=== PATIENT | male | born 1945 | race Hispanic/Latino ===

== ENCOUNTER 2023-02-23 14:57 | Observation (INO) | payer MEDICARE, SELFPAY ==
[2023-02-23] VITALS (19 sets, daily range): BP systolic 121–149; BP diastolic 68–98; PULSE 68–78; RESP 15–22; TEMP 36.2–36.6; O2SAT 93–97; BMI 62.3
--- NOTE | 2023-02-23 14:57 | DI.RAD.S_ITS ---
PROCEDURE: XR CHEST 1V INDICATIONS: Possible stroke TECHNIQUE: One view of the chest was acquired. COMPARISON: None. FINDINGS: Surgical changes and devices: None. Lungs and pleura: Lungs are clear. No pleural effusions or pneumothorax. Mediastinum: Mediastinal contours appear normal. Heart size is normal. Bones and chest wall: No suspicious bony lesions. Overlying soft tissues appear unremarkable. IMPRESSION: No acute cardiopulmonary abnormality. Dictated by: Michael Cortez M.D. on 02/23/2023 at 14:39 Approved by: Michael Cortez M.D. on 02/23/2023 at 14:39
--- NOTE | 2023-02-23 14:58 | DI.CT.S_ITS ---
PROCEDURE: CT HEAD/BRAIN WO CON INDICATIONS: confusion TECHNIQUE: Noncontrast 4.5 mm thick angled axial sections acquired from the foramen magnum to the vertex, with coronal and sagittal reformats. For radiation dose reduction, the following was used: automated exposure control, adjustment of mA and/or kV according to patient size. COMPARISON: None. FINDINGS: Image quality: Excellent. CSF spaces: Basal cisterns are patent. No extra-axial fluid collections. The ventricles are symmetric in size and shape. Brain: No intracranial bleeds or masses. There is cerebral volume loss for age, with resultant ventricular and sulcal prominence. There are periventricular and deep white matter chronic small vessel ischemic changes. There is intracranial internal carotid artery atherosclerosis. Skull and face: Calvarium and visualized facial bones appear intact, without suspicious lesions. Sinuses: Visualized sinuses and mastoids are clear. IMPRESSION: 1. No acute intracranial abnormality. 2. Cerebral volume loss and small vessel ischemic changes. Dictated by: Michael Cortez M.D. on 02/23/2023 at 14:41 Approved by: Michael Cortez M.D. on 02/23/2023 at 14:42
--- NOTE | 2023-02-23 15:17 | ED.AMS ---
HPI - Altered Mental Status General Chief Complaint: Altered Mental Status Stated Complaint: Altered mental status Time Seen by Provider: 02/23/23 15:00 Source: patient, family (coni), EMS, RN notes reviewed, old records reviewed and performance test consultant Mode of arrival: EMS Limitations: language barrier History of Present Illness HPI narrative: This is a 77-year-old primarily Amharic-speaking male with history of coronary artery disease with 2 cardiac stents in his RCA, on aspirin, atorvastatin, Coreg and lisinopril daily. Patient presents today with complaint of confusion, patient states feels improved at this time. According to him and his niece who was present with him today patient woke up like he normally does was acting himself had breakfast went to take a shower around noon and he states that when he came back out of the shower about 20 minutes later seemed confused asking same questions did not recognize where he was, she states he is usually quite modest and he still had a towel around him but was not being very modest. She states that he was sort of repetitive asking the same questions over and over while being transported here from [facility]. Patient denies any headache, he denies any acute vision changes other than did have some double vision in the last few days particularly with the right eye. Denies any chest pain or shortness of breath, no nausea or vomiting, no diarrhea constipation, no dysuria urgency frequency or incontinence. Denies any numbness or tingling in his extremities except for some mild tingling in both feet this morning. Denies any weakness. No vertigo or lightheadedness. No passing out. Family member states patient did not have any facial droop, she did not appreciate any aphasia or dysarthria more confusion. Patient was walking normally and had normal movement she did not appreciate any one-sided weakness patient passed his FAST exam in the field with EMS. Reported to have glucose 120s in the field. Patient states he is had prior hernia repair and had cardiac stents placed, he does have a card with him appears they were placed at [facility] in [place], [place] 06/24/12 Xience V [id number] and [id number] stent in proximal RCA. Patient denies any allergies to medications. No tobacco, occasional social alcohol, no illicit. He splits his time between living in [place] in [place] and with family in the [place]. Related Data Home Medications Medication Instructions Recorded Confirmed aspirin 81 mg capsule 81 mg PO DAILY 02/23/23 02/23/23 carvedilol 3.125 mg tablet 3.125 mg PO BID 02/23/23 02/23/23 lisinopril 5 mg 1XD 02/23/23 02/23/23 simvastatin 40 mg tablet mg 02/23/23 Allergies Allergy/AdvReac Type Severity Reaction Status Date / Time No Known Drug Allergies Allergy Verified 02/23/23 15:00 Review of Systems Review of Systems ROS Unobtainable: All systems reviewed & are unremarkable except as noted in HPI and below Patient History Medical History (Updated 02/23/23 @ 18:26 by Venkatesh Yoon MD) CAD (coronary artery disease) HLD (hyperlipidemia) HTN (hypertension) Surgical History (Updated 02/23/23 @ 18:35 by Venkatesh Yoon MD) H/O inguinal hernia repair History of coronary artery stent placement Family History (Updated 02/23/23 @ 18:27 by Venkatesh Yoon MD) Father COPD (chronic obstructive pulmonary disease) Social History Smoking Status: Never smoker Exam Narrative Exam Narrative: GEN: well nourished, well appearing male, alert and oriented x 3, patient appears to be in mild distress. HEENT: Atraumatic, pupils are equal round reactive to light, extraocular movements are intact, nares are clear. Throat is clear without any exudates, erythema, tonsillar enlargement or uvular deviation, no facial droop. HEART: Regular rate and rhythm without murmur, clicks, rubs. Pulses are equal in upper and lower extremities LUNGS:Lungs clear to auscultation, no wheezes, rales, crackles, chest moves symmetrically ABD:bowel sounds normal, soft, non-tender, no guarding, rebound, rigidity, no masses noted, no hepatosplenomegaly MSCL: Non-tender, no muscle atrophy, muscles strength 5/5 upper and lower extremities, full range of motion, normal gait NEURO:CN 2-12 intact, sensation normal, finger nose finger test normal, heel casillas test normal. No expressive aphasia or dysarthria appreciated. SKIN: No rash, erythema or other skin changes Initial Vital Signs Initial Vital Signs: Vital Signs Temperature 97.9 F 07/09/23 14:55 Pulse Rate 72 02/23/23 14:55 Respiratory Rate 18 02/23/23 14:55 Blood Pressure 136/82 02/23/23 14:55 Pulse Oximetry 96 02/23/23 14:55 Oxygen Delivery Method Room Air 02/23/23 14:55 Scores NIH Stroke Scale Level of Conciousness: Alert, keenly responsive Ask month/age: Answers both questions correctly. Open/close eyes, close hand: Performs both tasks correctly Best gaze horizontal: Normal Visual romero: No visual loss Facial palsy: Normal symetrical movement Left arm drift: No drift for full 10 sec Right arm drift: No drift for full 10 sec Left leg drift: No drift for full 5 sec Right leg drift: No drift for full 5 sec Limb ataxia: Absent Sensory on face/arms/legs: Normal, no sensory loss Best language: No aphasia, normal Dysarthria: Normal Extinction or inattention: No abnormality Total NIH Stroke scale score: 0 Course Orders Ordered: ED Orders 02/23/23 14:57 XR chest 1V Stat 02/23/23 14:58 CT head/brain wo con Stat 02/23/23 15:03 Urinalysis and Microscopic Stat Urine Drug Screen, Rapid Stat 02/23/23 15:07 EKG-12 Lead Stat 02/23/23 15:15 Complete Blood Count AUTO DIFF Stat Comprehensive Metabolic Panel Stat Magnesium Stat PTT Partial Thromboplastin Lamberto Stat Prothrombin Time INR Stat Troponin & CK Cardiac Panel Stat 02/23/23 15:30 CT angio head and neck Stat Aspirin (Aspirin Ec 81 Mg Tablet) 81 mg PO DAILY [facility] Atorvastatin Calcium (Atorvastatin 20 Mg Tablet) 80 mg PO BEDTIME [facility] Carvedilol (Carvedilol 3.125 Mg Tablet) 3.125 mg PO BID [facility] Enoxaparin Sodium (Enoxaparin 40 Mg/0.4 Ml Syringe) 40 mg SUBCUT DAILY [facility] Lisinopril (Lisinopril 5 Mg Tablet) 5 mg PO DAILY [facility] Naloxone HCl (Naloxone 0.4 Mg/Ml Vial) 0.2 mg IV Q2MIN PRN PRN Reason: Opiate Reversal Ondansetron HCl (Ondansetron 4 Mg/2 Ml Inj) 4 mg IV NOW PRN PRN Reason: Nausea And Vomiting Ondansetron HCl (Ondansetron 4 Mg Odt) 4 mg SL NOW PRN PRN Reason: Nausea And Vomiting Discontinued Medications Aspirin (Aspirin 81 Mg Chew Tab) 324 mg PO NOW ONE Stop: 02/23/23 16:35 Last Admin: 02/23/23 16:56 Dose: 324 mg Documented By: JAKUB Vital Signs Vital signs: Vital Signs - 8 hr 02/23/23 14:55 02/23/23 14:58 02/23/23 14:59 Temperature 97.9 F Pulse Rate 72 Respiratory Rate 18 Blood Pressure 136/82 125/81 Pulse Oximetry 96 96 Oxygen Delivery Method Room Air 02/23/23 14:59 02/23/23 15:00 02/23/23 15:30 Temperature Pulse Rate 72 72 72 Respiratory Rate 21 15 Blood Pressure Pulse Oximetry 95 93 97 Oxygen Delivery Method 02/23/23 15:49 02/23/23 15:49 02/23/23 16:11 Temperature Pulse Rate 78 77 Respiratory Rate 22 Blood Pressure 136/82 Pulse Oximetry 95 Oxygen Delivery Method 02/23/23 16:12 02/23/23 16:12 02/23/23 16:20 Temperature Pulse Rate 75 Respiratory Rate 16 Blood Pressure 141/78 H 129/77 Pulse Oximetry 95 Oxygen Delivery Method 02/23/23 16:20 02/23/23 16:30 02/23/23 16:40 Temperature Pulse Rate 76 75 76 Respiratory Rate 16 15 16 Blood Pressure Pulse Oximetry 96 96 96 Oxygen Delivery Method 02/23/23 16:40 02/23/23 17:00 02/23/23 17:00 Temperature Pulse Rate 70 Respiratory Rate 17 Blood Pressure 121/68 131/77 Pulse Oximetry 96 Oxygen Delivery Method 02/23/23 17:20 02/23/23 17:20 02/23/23 17:30 Temperature Pulse Rate 70 68 Respiratory Rate 16 17 Blood Pressure 130/71 Pulse Oximetry 96 96 Oxygen Delivery Method 02/23/23 17:40 02/23/23 17:40 02/23/23 18:00 Temperature Pulse Rate 77 75 Respiratory Rate 21 22 Blood Pressure 133/79 Pulse Oximetry 94 94 Oxygen Delivery Method MDM - Altered Mental Status Lab Data 02/23/23 15:15 02/23/23 15:15 Labs: Lab Results 02/23/23 02/23/23 02/23/23 Range/Units 15:03 15:03 15:15 WBC 12.8 H (4.5-11.0) X10^3/uL RBC 4.80 (4.5-5.9) X10^6/uL Hgb 14.3 (13.5-17.5) g/dL Hct 42.5 (41-53) % MCV 88.6 (80-100) fL MCH 29.9 (26-34) PG MCHC 33.7 (30-36) % RDW 12.6 (11.6-14.8) % Plt Count 298 (150-400) X10^3/uL Neut % (Auto) 79.3 H (50-75) % Lymph % (Auto) 13.9 L (25-40) % [place] % (Auto) 5.6 (3-14) % Eos % (Auto) 0.8 L (2-4) % Baso % (Auto) 0.4 (0-2) % Neut # (Auto) 96965 H (2092-3143) /uL Lymph # (Auto) 1800 (0056-4194) /uL [place] # (Auto) 700 (0-900) /uL Eos # (Auto) 100 (0-450) /uL Baso # (Auto) 0 (0-100) /uL PT (10.1-12.7) SECONDS INR (0.9-1.3) APTT (26-36) SECONDS Sodium (137-145) mmol/L Potassium (3.4-5.1) mmol/L Chloride (98-107) mmol/L Carbon Dioxide (22-32) mmol/L BUN (9-20) mg/dL Creatinine (0.66-1.25) mg/dL Estimated GFR (>60) mL/min BUN/Creatinine Ratio (6-22) Glucose (80-110) mg/dL Calcium (8.4-10.2) mg/dL Magnesium (1.6-2.3) mg/dL Total Bilirubin (0.2-1.3) mg/dL AST (17-59) IU/L ALT (<50) IU/L Alkaline Phosphatase (38-126) U/L Total Creatine Kinase (55-170) U/L Troponin I (0.01-0.034) ng/mL Total Protein (6.3-8.2) g/dL Albumin (3.5-5.0) g/dL Globulin (1.7-4.1) g/dL Albumin/Globulin Ratio (1.0-2.8) Urine Color Yellow Urine Appearance Clear Urine pH 6.0 (4.5-8.0) Ur Specific [place] 1.010 (1.000-1.035) Urine Protein Negative (Negative) Urine Glucose (UA) Negative (Negative) g/dL Urine Ketones Negative (NEGATIVE) Urine Occult Blood Trace-intact (Negative) Urine Nitrate Negative (Negative) Urine Bilirubin Negative (NEGATIVE) Urine Urobilinogen 0.2 (0.2) E.U./dL Ur Leukocyte Esterase Negative (NEGATIVE) Urine RBC None seen (0-5/HPF) Urine WBC None seen (0-5/HPF) Ur Squamous Epith Cells None seen (0-5/HPF) Amorphous Sediment 1+ Urine Bacteria None seen (None) Ur Culture Indicated? Cult not indicated U Opiates 300ng/mL cut Negative (Negative) Ur Oxycodone Screen Negative (Negative) Urine Methadone Screen Negative (Negative) Ur Barbiturates Screen Negative (Negative) U Tricyclic Antidepress Negative (Negative) Ur Phencyclidine Scrn Negative (Negative) Ur Amphetamines Screen Negative (Negative) U Methamphetamines Scrn Negative (Negative) Ur MDMA Scrn (Ecstasy) Negative (Negative) U Benzodiazepines Scrn Negative (Negative) Urine Cocaine Screen Negative (Negative) U Marijuana (THC) Screen Negative (Negative) 02/23/23 02/23/23 Range/Units 15:15 15:15 WBC (4.5-11.0) X10^3/uL RBC (4.5-5.9) X10^6/uL Hgb (13.5-17.5) g/dL Hct (41-53) % MCV (80-100) fL MCH (26-34) PG MCHC (30-36) % RDW (11.6-14.8) % Plt Count (150-400) X10^3/uL Neut % (Auto) (50-75) % Lymph % (Auto) (25-40) % [place]duffie % (Auto) (3-14) % Eos % (Auto) (2-4) % Baso % (Auto) (0-2) % Neut # (Auto) (8803-0881) /uL Lymph # (Auto) (2800-1617) /uL [place]duffie # (Auto) (0-900) /uL Eos # (Auto) (0-450) /uL Baso # (Auto) (0-100) /uL PT 12.5 (10.1-12.7) SECONDS INR 1.1 (0.9-1.3) APTT 31 (26-36) SECONDS Sodium 136 L (137-145) mmol/L Potassium 4.2 (3.4-5.1) mmol/L Chloride 106 (98-107) mmol/L Carbon Dioxide 22 (22-32) mmol/L BUN 20 (9-20) mg/dL Creatinine 0.81 (0.66-1.25) mg/dL Estimated GFR > 60 (>60) mL/min BUN/Creatinine Ratio 24.7 H (6-22) Glucose 100 (80-110) mg/dL Calcium 8.8 (8.4-10.2) mg/dL Magnesium 1.8 (1.6-2.3) mg/dL Total Bilirubin 1.0 (0.2-1.3) mg/dL AST 31 (17-59) IU/L ALT 28 (<50) IU/L Alkaline Phosphatase 68 (38-126) U/L Total Creatine Kinase 103 (55-170) U/L Troponin I < 0.012 (0.01-0.034) ng/mL Total Protein 7.4 (6.3-8.2) g/dL Albumin 4.0 (3.5-5.0) g/dL Globulin 3.4 (1.7-4.1) g/dL Albumin/Globulin Ratio 1.2 (1.0-2.8) Urine Color Urine Appearance Urine pH (4.5-8.0) Ur Specific [place] (1.000-1.035) Urine Protein (Negative) Urine Glucose (UA) (Negative) g/dL Urine Ketones (NEGATIVE) Urine Occult Blood (Negative) Urine Nitrate (Negative) Urine Bilirubin (NEGATIVE) Urine Urobilinogen (0.2) E.U./dL Ur Leukocyte Esterase (NEGATIVE) Urine RBC (0-5/HPF) Urine WBC (0-5/HPF) Ur Squamous Epith Cells (0-5/HPF) Amorphous Sediment Urine Bacteria (None) Ur Culture Indicated? U Opiates 300ng/mL cut (Negative) Ur Oxycodone Screen (Negative) Urine Methadone Screen (Negative) Ur Barbiturates Screen (Negative) U Tricyclic Antidepress (Negative) Ur Phencyclidine Scrn (Negative) Ur Amphetamines Screen (Negative) U Methamphetamines Scrn (Negative) Ur MDMA Scrn (Ecstasy) (Negative) U Benzodiazepines Scrn (Negative) Urine Cocaine Screen (Negative) U Marijuana (THC) Screen (Negative) Point of Care Testing Glucose POC 126 Urine Dip Bedside Urine Glucose Negative Bedside Urine Bilirubin - Negative Bedside Urine Ketone - Negative Urine Specific [place] 1.010 Bedside Urine Occult Blood - Negative Bedside Urine pH 5.5 Bedside Urine Protein - Negative Bedside Urine Urobilinogen - Negative Bedside Urine Nitrite - Negative Bedside Urine Leukocytes - Negative Esterase Imaging Data Chest x-ray: Radiologist's Impression: [address] [address] XRay Report Signed Patient: Jc Calix MR#: [id number] : 1945 Acct:[id number] Age/Sex: 77 / M Date of Service: 02/23/23 Loc: ED Accession Number: [id number] ?? Procedure: XR chest 1V Ordering Provider: Margie Jane D.O. PROCEDURE:? XR CHEST 1V ? INDICATIONS:? Possible stroke ? TECHNIQUE:? One view of the chest was acquired.? ? COMPARISON:? None. ? FINDINGS:? ? Surgical changes and devices:? None.? ? Lungs and pleura:? Lungs are clear.? No pleural effusions or pneumothorax.? ? Mediastinum:? Mediastinal contours appear normal.? Heart size is normal.? ? Bones and chest wall:? No suspicious bony lesions.? Overlying soft tissues appear unremarkable.? ? IMPRESSION:? No acute cardiopulmonary abnormality. ? ? ? Dictated by: Michael Cortez M.D. on 02/23/2023 at 14:39 ? ? Approved by: Michael Cortez M.D. on 02/23/2023 at 14:39? CT scan - head: Radiologist's Impression: Close Head CT (Signed) Michael Cortez - 02/23/23 Chest X-Ray (Signed) Michael Cortez - 02/23/23 Launch?Image [address] [address] [address] Scan Report Signed Patient: Jc Calix MR#: [id number] : 1945 Acct:[id number] Age/Sex: 77 / M Date of Service: 02/23/23 Loc: ED Accession Number: [id number] ?? Procedure: CT head/brain wo con Ordering Provider: Margie Jane D.O. PROCEDURE:? CT HEAD/BRAIN WO CON ? INDICATIONS:? confusion ? TECHNIQUE:? Noncontrast 4.5 mm thick angled axial sections acquired from the foramen magnum to the vertex, with coronal and sagittal reformats.? For radiation dose reduction, the following was used:? automated exposure control, adjustment of mA and/or kV according to patient size.? ? COMPARISON:? None. ? FINDINGS:? Image quality:? Excellent.? ? CSF spaces:? Basal cisterns are patent.? No extra-axial fluid collections.? The ventricles are symmetric in size and shape.? ? Brain:? No intracranial bleeds or masses.? There is cerebral volume loss for age, with resultant ventricular and sulcal prominence.? There are periventricular and deep white matter chronic small vessel ischemic changes.? There is intracranial internal carotid artery atherosclerosis.? ? Skull and face:? Calvarium and visualized facial bones appear intact, without suspicious lesions.? ? Sinuses:? Visualized sinuses and mastoids are clear.? ? IMPRESSION:? 1. No acute intracranial abnormality. 2. Cerebral volume loss and small vessel ischemic changes.? Dictated by: Michael Cortez M.D. on 02/23/2023 at 14:41 ? ? Approved by: Michael Cortez M.D. on 02/23/2023 at 14:42?? CTA - brain/neck: Radiologist's Impression: [place] [address] CT Scan Report Signed Patient: Jc Calix MR#: [id number] : 1945 Acct:[id number] Age/Sex: 77 / M Date of Service: 02/23/23 Loc: ED Accession Number: [id number] ?? Procedure: CT angio head and neck Ordering Provider: Margie Jane D.O. PROCEDURE:? CT ANGIO HEAD AND NECK ? INDICATIONS:? confused, reptitive, no reported trauma ? TECHNIQUE:? Pre-contrast 4.5 mm thick sections acquired from the foramen magnum to the vertex.? After the administration of intravenous contrast, 1 mm thick sections acquired from the aortic arch through the [place] of Kwong.? Post-contrast 4.5 mm thick sections then re-acquired from the foramen magnum to the vertex.? 3-dimensional xjberia-ffpcbhlqn-igjseptkho (MIP) and/or volume rendering reformats were acquired of the central intracranial vasculature and neck separately. For radiation dose reduction, the following was used:? automated exposure control, adjustment of mA and/or kV according to patient size.? ? COMPARISON:? None. ? FINDINGS:? Image quality:? Excellent.? ? BRAIN:? CSF spaces:? Ventricles are normal in size and shape.? Basal cisterns are patent.? No extra-axial fluid collections.? ? Brain:? No midline shift.? No intracranial bleeds or masses.? Duenas-white matter interface appears intact. ? Subcortical and periventricular white matter hypodensities are consistent with small vessel ischemic disease. ? Skull and face:? Calvarium and facial bones appear intact, without suspicious lesions.? Orbits appear normal.? ? Sinuses:? Sinuses and mastoids are clear.? ? HEAD CT ANGIOGRAPHY:? Anterior circulation:? Intracranial internal carotid arteries are normal in size and flow.? The flow within the paired anterior cerebral arteries is normal and symmetric.? The flow within the middle cerebral arteries is normal and symmetric.? The anterior communicating artery is seen.? No aneurysms are seen.? ? Posterior circulation:? Visualized portions of the vertebral arteries demonstrate normal caliber, and join to form a normal appearing basilar artery.? Flow within the posterior cerebral arteries is normal and symmetric.? No aneurysms are seen.? ? NECK CT ANGIOGRAPHY:? Carotid system:? The great vessels demonstrate a conventional anatomy as they arise from the aortic arch.? The origins of the common carotid arteries appear patent.? The common carotid arteries demonstrate normal caliber and courses.? The bifurcation regions are both widely patent.? The internal carotid arteries demonstrate normal calibers and courses.? ? Posterior circulation:? The origins of the vertebral arteries both appear widely patent.? The more superior extracranial portions of both vertebral arteries also demonstrate normal courses and calibers.? They join to form a normal appearing basilar artery.? ? Soft tissues:? Visualized neck soft tissues demonstrate no suspicious abnormalities.? ? Bones:? No suspicious bony lesions.? Visualized cervical spine appears normally aligned.? IMPRESSION: 1. CTA head and CTA neck demonstrates aneurysm, dissection, large vessel occlusion, or significant stenosis. 2. No acute intracranial abnormality. ? Any quantitative measurements of stenosis were performed using NASCET criteria.? ? ? Dictated by: Michael Cortez M.D. on 02/23/2023 at 16:13 ? ? Approved by: Michael Cortez M.D. on 02/23/2023 at 16:17? ECG Data Attestation: I personally reviewed and interpreted this ECG as follows: Interpretation: Sinus rhythm rate of 60 6p are 134, QRS of 84 QTC of 450. No acute ST elevation or depression. MDM Narrative Medical decision making narrative: This is a 77-year-old male who presents with complaint of sudden acute onset of confusion, does note some double vision particularly with the right eye in the last several days, no other acute neurologic changes appreciated fast exam negative in the field and family did not appreciate other changes other than repetitive questioning. Initial head CT and chest x-ray negative, labs show white count of 12, normal hemoglobin and platelets. Coags are negative, sodium is 136 normal renal function and electrolytes, LFTs and troponin are negative. UA is negative as well as UDS. Patient's NIH is 0 but with his changes CT head and neck angio was obtained is negative. Discussed with Dr. Yoon accepts for observation for possible TIA versus acute alteration mental status which has since resolved. Reviewed all the patient's findings with patient with performance test consultant as well as his niece. She notes he seems to be back at baseline at this time. He would 3 baby aspirin decision to his regular aspirin this morning. Discharge Plan Departure Patient Disposition: Admitted as Observation Clinical Impression: Acute alteration in mental status Admit Date/Time: 02/23/23 18:11 Admit Provider: Venkatesh Yoon
[2023-02-23 15:30] LABS: Add Manual Diff / Slide Review NO; Basophils Absolute Auto 0 /uL (0-100); Basophils Percent Auto 0.4 % (0-2); Eosinophils Absolute Auto 100 /uL (0-450); Eosinophils Percent Auto 0.8 % (2-4); Hematocrit 42.5 % (41-53); Hemoglobin 14.3 g/dL (13.5-17.5); Lymphocytes Absolute Auto 1800 /uL (1100-4500); Lymphocytes Percent Auto 13.9 % (25-40); Mean Corpuscular HGB Conc 33.7 % (30-36); Mean Corpuscular Hemoglobin 29.9 PG (26-34); Mean Corpuscular Volume 88.6 fL (80-100); Monocytes Absolute Auto 700 /uL (0-900); Monocytes Percent Auto 5.6 % (3-14); Neutrophils Absolute Auto 10100 /uL (1500-7000); Neutrophils Percent Auto 79.3 % (50-75); Platelet Count 298 X10^3/uL (150-400); Red Cell Distribution Width 12.6 % (11.6-14.8); White Blood Cell Count 12.8 X10^3/uL (4.5-11.0)
--- NOTE | 2023-02-23 15:30 | DI.CT.S_ITS ---
PROCEDURE: CT ANGIO HEAD AND NECK INDICATIONS: confused, reptitive, no reported trauma TECHNIQUE: Pre-contrast 4.5 mm thick sections acquired from the foramen magnum to the vertex. After the administration of intravenous contrast, 1 mm thick sections acquired from the aortic arch through the [place] of [place]. Post-contrast 4.5 mm thick sections then re-acquired from the foramen magnum to the vertex. 3-dimensional ipodyam-zhxddvndr-rhehpqkete (MIP) and/or volume rendering reformats were acquired of the central intracranial vasculature and neck separately. For radiation dose reduction, the following was used: automated exposure control, adjustment of mA and/or kV according to patient size. COMPARISON: None. FINDINGS: Image quality: Excellent. BRAIN: CSF spaces: Ventricles are normal in size and shape. Basal cisterns are patent. No extra-axial fluid collections. Brain: No midline shift. No intracranial bleeds or masses. Duenas-white matter interface appears intact. Subcortical and periventricular white matter hypodensities are consistent with small vessel ischemic disease. Skull and face: Calvarium and facial bones appear intact, without suspicious lesions. Orbits appear normal. Sinuses: Sinuses and mastoids are clear. HEAD CT ANGIOGRAPHY: Anterior circulation: Intracranial internal carotid arteries are normal in size and flow. The flow within the paired anterior cerebral arteries is normal and symmetric. The flow within the middle cerebral arteries is normal and symmetric. The anterior communicating artery is seen. No aneurysms are seen. Posterior circulation: Visualized portions of the vertebral arteries demonstrate normal caliber, and join to form a normal appearing basilar artery. Flow within the posterior cerebral arteries is normal and symmetric. No aneurysms are seen. NECK CT ANGIOGRAPHY: Carotid system: The great vessels demonstrate a conventional anatomy as they arise from the aortic arch. The origins of the common carotid arteries appear patent. The common carotid arteries demonstrate normal caliber and courses. The bifurcation regions are both widely patent. The internal carotid arteries demonstrate normal calibers and courses. Posterior circulation: The origins of the vertebral arteries both appear widely patent. The more superior extracranial portions of both vertebral arteries also demonstrate normal courses and calibers. They join to form a normal appearing basilar artery. Soft tissues: Visualized neck soft tissues demonstrate no suspicious abnormalities. Bones: No suspicious bony lesions. Visualized cervical spine appears normally aligned. IMPRESSION: 1. CTA head and CTA neck demonstrates aneurysm, dissection, large vessel occlusion, or significant stenosis. 2. No acute intracranial abnormality. Any quantitative measurements of stenosis were performed using NASCET criteria. Dictated by: Michael Cortez M.D. on 02/23/2023 at 16:13 Approved by: Michael Cortez M.D. on 02/23/2023 at 16:17
[2023-02-23 15:38] LABS: INR 1.1 (0.9-1.3); Prothrombin Time 12.5 SECONDS (10.1-12.7)
[2023-02-23 15:41] LABS: PTT Partial Thromboplastin Tim 31 SECONDS (26-36)
[2023-02-23 15:42] LABS: Alanine Aminotransferase 28 IU/L (<50); Albumin Globulin Ratio 1.2 (1.0-2.8); Alkaline Phosphatase 68 U/L (38-126); Aspartate Aminotransferase 31 IU/L (17-59); BUN Creatinine Ratio 24.7 (6-22); Blood Urea Nitrogen 20 mg/dL (9-20); Calcium 8.8 mg/dL (8.4-10.2); Carbon Dioxide 22 mmol/L (22-32); Chloride 106 mmol/L (98-107); Creatine Kinase 103 U/L (55-170); Estimated Glomerular Filt Rate > 60 mL/min (>60); Globulin 3.4 g/dL (1.7-4.1); Glucose 100 mg/dL (80-110); HEMOLYSIS < 15 (0-50); Magnesium 1.8 mg/dL (1.6-2.3); Potassium 4.2 mmol/L (3.4-5.1); Sodium 136 mmol/L (137-145); Total Protein 7.4 g/dL (6.3-8.2)
[2023-02-23 15:54] LABS: Troponin I < 0.012 ng/mL (0.01-0.034)
[2023-02-23 16:07] LABS: UR Morphine/Opiate cutoff 300 Negative (Negative); Ur Creatinine Normal (Normal); Ur Specific Gravity Normal (Normal); Urine Amphetamines Negative (Negative); Urine Barbiturates Negative (Negative); Urine Benzodiazepines Negative (Negative); Urine Cocaine Negative (Negative); Urine MDMA Negative (Negative); Urine Methadone Negative (Negative); Urine Methamphetamines Negative (Negative); Urine Oxycodone Negative (Negative); Urine Phencyclidine Negative (Negative); Urine Tetrahydrocannabinol Negative (Negative); Urine Tricyclic Antidepressant Negative (Negative); Urine pH Normal (Normal)
[2023-02-23 16:10] LABS: Appearance Urine UA CLEAR; Bilirubin Urine UA NEGATIVE (NEGATIVE); Color Urine UA YELLOW; Glucose Urine UA NEGATIVE (Negative); Ketones Urine UA NEGATIVE (NEGATIVE); Leukocyte Esterase Urine UA NEGATIVE (NEGATIVE); Nitrite Urine UA NEGATIVE (Negative); Occult Blood Urine UA TRACE-INTACT (Negative); Protein Urine UA NEGATIVE (Negative); Urobilinogen Urine UA 0.2 E.U./dL (0.2)
[2023-02-23 16:17] LABS: Amorphous Sediment Urine 1+; Bacteria Urine None Seen; Culture Indicated Urine Cult Not Indicated; RBC Urine None Seen (0-5/HPF); Squamous Epithelial Cell Urine None Seen (0-5/HPF); WBC Urine None Seen (0-5/HPF)
[2023-02-23] MEDS: ASPIRIN 81 MG CHEW TAB 324 MG PO (16:56)
--- NOTE | 2023-02-23 18:25 | PM.HP.1 ---
History of Present Illness History of Present Illness Date Patient Seen: 02/23/23 Time Patient Seen: 18:25 Chief complaint: Altered mental status Narrative: This is 77-year-old male who lives in [place] and has coronary disease, hypertension and hyperlipidemia. He is visiting his sister locally and today around noon, after coming out of the shower was confused, repetitive and seemed to have some double vision. He had been acting normal in the morning. He has no history of stroke but has had coronary artery stenting in the past. The symptoms lasted for about 2 hours but were completely cleared by the time he got to the ED from [facility]. His CT of the brain is normal. His CTA of the head and neck is normal. The chest x-ray is normal. His labs are unremarkable. He will be monitored on telemetry. He has no history of atrial fibrillation. He is a [place] speaker. His adult daughter is with him and translates. That is his preference. He is flying back to [place] in 4 days. [facility] Medical History (Updated 02/23/23 @ 18:26 by Venkatesh Yoon MD) CAD (coronary artery disease) HLD (hyperlipidemia) HTN (hypertension) Surgical History (Updated 02/23/23 @ 18:35 by Venkatesh Yoon MD) H/O inguinal hernia repair History of coronary artery stent placement Family History (Updated 02/23/23 @ 18:27 by Venkatesh Yoon MD) Father COPD (chronic obstructive pulmonary disease) Social History Smoking Status: Never smoker Comment: He lives in [place] and is visiting his sister on [facility] today. His flight back to [place] is in 4 days. His adult daughter and grandchildren accompany him. Meds Home Medications and Allergies Home Medications Medication Instructions Recorded Confirmed Type aspirin 81 mg capsule 81 mg PO DAILY 02/23/23 02/23/23 History carvedilol 3.125 mg tablet 3.125 mg PO BID 02/23/23 02/23/23 History lisinopril 5 mg 1XD 02/23/23 02/23/23 History simvastatin 40 mg tablet mg 02/23/23 History Allergies Allergy/AdvReac Type Severity Reaction Status Date / Time No Known Drug Allergies Allergy Verified 02/23/23 15:00 Review of Systems Review of Systems Narrative: Positive for confusion, tingling in feet, repetitive statements. Negative for fevers, chills, sweats, chest pain, nausea abdominal pain, difficulty walking, difficulty speaking, weakness, rashes, seizures, headaches, double vision, Exam Vital Signs (past 8 hours): - 02/23/23 14:55 02/23/23 14:58 02/23/23 14:59 Temperature 97.9 F Pulse Rate 72 Respiratory Rate 18 Blood Pressure 136/82 125/81 Pulse Oximetry 96 96 Oxygen Delivery Method Room Air 02/23/23 14:59 02/23/23 15:00 02/23/23 15:30 Temperature Pulse Rate 72 72 72 Respiratory Rate 21 15 Blood Pressure Pulse Oximetry 95 93 97 Oxygen Delivery Method 02/23/23 15:49 02/23/23 15:49 02/23/23 16:11 Temperature Pulse Rate 78 77 Respiratory Rate 22 Blood Pressure 136/82 Pulse Oximetry 95 Oxygen Delivery Method 02/23/23 16:12 02/23/23 16:12 02/23/23 16:20 Temperature Pulse Rate 75 Respiratory Rate 16 Blood Pressure 141/78 H 129/77 Pulse Oximetry 95 Oxygen Delivery Method 02/23/23 16:20 02/23/23 16:30 02/23/23 16:40 Temperature Pulse Rate 76 75 76 Respiratory Rate 16 15 16 Blood Pressure Pulse Oximetry 96 96 96 Oxygen Delivery Method 02/23/23 16:40 02/23/23 17:00 02/23/23 17:00 Temperature Pulse Rate 70 Respiratory Rate 17 Blood Pressure 121/68 131/77 Pulse Oximetry 96 Oxygen Delivery Method 02/23/23 17:20 02/23/23 17:20 02/23/23 17:30 Temperature Pulse Rate 70 68 Respiratory Rate 16 17 Blood Pressure 130/71 Pulse Oximetry 96 96 Oxygen Delivery Method 02/23/23 17:40 02/23/23 17:40 02/23/23 18:00 Temperature Pulse Rate 77 75 Respiratory Rate 21 22 Blood Pressure 133/79 Pulse Oximetry 94 94 Oxygen Delivery Method Oxygen Delivery Method Room Air Narrative Exam Narrative: He is alert and oriented x3. No apparent distress. Pupils are equally round and reactive to light and accommodation. Extraocular muscles are intact. Sclerae are pink and nonicteric. Throat looks normal. No lymph nodes are felt head, neck, supraclavicular area. There is no thyromegaly. JVD is Less than 6 cm. No carotid bruits are heard. Heart is regular rate and rhythm without murmur. Lungs are clear to auscultation bilaterally Abdomen is soft, bowel sounds positive, nontender, no organomegaly. Extremities have no ankle edema. Skin has no rash or jaundice. Exam: Cranial nerves 2-12 test intact. 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 Sensation is intact. Objective Labs 02/23/23 15:15 02/23/23 15:15 Labs: Laboratory Results - last 24 hr 02/23/23 02/23/23 02/23/23 15:03 15:03 15:15 WBC 12.8 H RBC 4.80 Hgb 14.3 Hct 42.5 MCV 88.6 MCH 29.9 MCHC 33.7 RDW 12.6 Plt Count 298 Neut % (Auto) 79.3 H Lymph % (Auto) 13.9 L [place] % (Auto) 5.6 Eos % (Auto) 0.8 L Baso % (Auto) 0.4 Neut # (Auto) 92596 H Lymph # (Auto) 1800 Perkins # (Auto) 700 Eos # (Auto) 100 Baso # (Auto) 0 PT INR APTT Sodium Potassium Chloride Carbon Dioxide BUN Creatinine Estimated GFR BUN/Creatinine Ratio Glucose Calcium Magnesium Total Bilirubin AST ALT Alkaline Phosphatase Total Creatine Kinase Troponin I Total Protein Albumin Globulin Albumin/Globulin Ratio Urine Color Yellow Urine Appearance Clear Urine pH 6.0 Ur Specific [place] 1.010 Urine Protein Negative Urine Glucose (UA) Negative Urine Ketones Negative Urine Occult Blood Trace-intact Urine Nitrate Negative Urine Bilirubin Negative Urine Urobilinogen 0.2 Ur Leukocyte Esterase Negative Urine RBC None seen Urine WBC None seen Ur Squamous Epith Cells None seen Amorphous Sediment 1+ Urine Bacteria None seen Ur Culture Indicated? Cult not indicated U Opiates 300ng/mL cut Negative Ur Oxycodone Screen Negative Urine Methadone Screen Negative Ur Barbiturates Screen Negative U Tricyclic Antidepress Negative Ur Phencyclidine Scrn Negative Ur Amphetamines Screen Negative U Methamphetamines Scrn Negative Ur MDMA Scrn (Ecstasy) Negative U Benzodiazepines Scrn Negative Urine Cocaine Screen Negative U Marijuana (THC) Screen Negative 02/23/23 02/23/23 15:15 15:15 WBC RBC Hgb Hct MCV MCH MCHC RDW Plt Count Neut % (Auto) Lymph % (Auto) [place] % (Auto) Eos % (Auto) Baso % (Auto) Neut # (Auto) Lymph # (Auto) Perkins # (Auto) Eos # (Auto) Baso # (Auto) PT 12.5 INR 1.1 APTT 31 Sodium 136 L Potassium 4.2 Chloride 106 Carbon Dioxide 22 BUN 20 Creatinine 0.81 Estimated GFR > 60 BUN/Creatinine Ratio 24.7 H Glucose 100 Calcium 8.8 Magnesium 1.8 Total Bilirubin 1.0 AST 31 ALT 28 Alkaline Phosphatase 68 Total Creatine Kinase 103 Troponin I < 0.012 Total Protein 7.4 Albumin 4.0 Globulin 3.4 Albumin/Globulin Ratio 1.2 Urine Color Urine Appearance Urine pH Ur Specific [place] Urine Protein Urine Glucose (UA) Urine Ketones Urine Occult Blood Urine Nitrate Urine Bilirubin Urine Urobilinogen Ur Leukocyte Esterase Urine RBC Urine WBC Ur Squamous Epith Cells Amorphous Sediment Urine Bacteria Ur Culture Indicated? U Opiates 300ng/mL cut Ur Oxycodone Screen Urine Methadone Screen Ur Barbiturates Screen U Tricyclic Antidepress Ur Phencyclidine Scrn Ur Amphetamines Screen U Methamphetamines Scrn Ur MDMA Scrn (Ecstasy) U Benzodiazepines Scrn Urine Cocaine Screen U Marijuana (THC) Screen Assessment & Plan Assessment & Plan narrative: This is a 77-year-old male with coronary artery disease, hypertension and stance with an episode of confusion/altered mental state consistent with TIA. Altered mental status/possible TIA -urine drug screen, UA, CBC and CMP are unremarkable. -CT brain, CTA head and neck are unremarkable. -continue aspirin, carvedilol, lisinopril and substitute atorvastatin for simvastatin. -order echocardiogram and observe on telemetry overnight. Coronary artery disease -telemetry -no chest pain. Troponin is normal. -continue aspirin and carvedilol -continue atorvastatin Hypertension -continue lisinopril and carvedilol. Hyperlipidemia -atorvastatin His daughter is his backup decision maker Enoxaparin for DVT prophylaxis
--- NOTE | 2023-02-23 18:32 | DI.ECHO.S_ITS ---
[facility]---------+ [facility] +---------+ : : [address] : : : : [id number] : : : : Phone: [phone] Echocardiogram Report + + :Name: FATUMA RAMOS Study Date: 02/24/2023 Height: 70 in : :[facility] ReadingLocation: Weight: 177 lb : : Gender: Male BSA: 2.0 m2 : :: 1945 Age: 77 yrs BP: 125/71 mmHg: :Reason For Study: TIA : :Ordering Physician: MEGAN, : :LISETTE Nunez Performed By: Mara Loomis : :Referring: LISETTE GUZMAN : + + Interpretation Summary Normal both left and right ventricle size and function. The ejection fraction is 60-65%. No valvular abnormality. Procedure: A two-dimensional transthoracic echocardiogram with color flow and Doppler was performed. The study quality was technically adequate. There is no prior echocardiogram noted for this patient. The patient was in sinus rhythm with heart rates between 62-69 bpm during the exam. Left Ventricle: The left ventricle is normal in size and wall thickness. The ejection fraction is estimated to be 60-65%. There are no focal wall motion abnormalities. Diastolic parameters suggest probable normal left ventricular diastolic function and normal filling pressures. Right Ventricle: The right ventricle is normal in size and function. Atria: The left atrial size is normal. Right atrial size is normal. There is no Doppler evidence for an interatrial shunt. Mitral Valve: The mitral valve is normal in structure and function. There is trace mitral regurgitation. Aortic Valve: The aortic valve is trileaflet. The aortic valve opens well. There is no aortic valve stenosis. No aortic regurgitation is present. Tricuspid Valve: The tricuspid valve is normal in structure and function. There is trace tricuspid regurgitation. The right ventricular systolic pressure is estimated to be at least 29 mmHg based on an estimated right atrial pressure of 3 mm Hg. Pulmonic Valve: The pulmonic valve is not well visualized. There is a trace or physiologic amount of pulmonic regurgitation. Great Vessels: The aortic root is normal size. The dimensions of the ascending aorta are normal. The IVC is of normal diameter and collapses greater than 50% with a sniff. This suggests a low right atrial pressure of 3 mm Hg. Pericardium/ Pleura There is no pericardial effusion. There is no pleural effusion. MMode/2D Measurements & Calculations LVIDd: 4.9 cm LVOT diam: 2.0 cm LVIDs: 3.4 cm Ao root diam: 3.5 cm FS: 31.5 % asc Aorta Diam: 3.5 cm IVSd: 0.74 cm Ao Arch Diam (Prox Trans): 3.0 cm LVPWd: 0.88 cm LV jacinto. diameter/BSA (cm/m^2): 2.5 LV sys. diameter/BSA (cm/m^2): 1.7 LA A2 area: 14.6 cm2 RA long axis: 4.6 cm LA A4 area: 14.9 cm2 RA area: 14.7 cm2 LA length (vol): 4.9 cm RA vol: 39.9 ml LA vol: 37.9 ml RA : 20.2 ml/m2 LA vol index: 19.1 ml/m2 IVC diam: 1.6 cm RVD1 (basal): 3.5 cm RVD2 (mid): 3.0 cm TAPSE: 1.6 cm Doppler Measurements & Calculations Ao V2 max: 118.1 cm/sec LVOT Max Rajeev: 83.7 cm/sec Ao V2 mean: 90.3 cm/sec LV V1 max P.8 mmHg Ao max P.6 mmHg LV V1 VTI: 18.1 cm Ao mean P.5 mmHg FRANCA(I,D): 2.4 cm2 Ao V2 VTI: 24.4 cm FRANCA(V,D): 2.3 cm2 sev ratio: 0.74 FRANCA indexed to BSA (cm^2/m^2): 1.2 MV E max rajeev: 69.2 cm/sec TR max rajeev: 253.2 cm/sec MV A max rajeev: 63.0 cm/sec TR max P.7 mmHg MV E/A: 1.1 PA V2 max: 83.4 cm/sec Med Peak E' Rajeev: 6.3 cm/sec PA V2 mean: 59.6 cm/sec E/E' med: 10.9 PA mean P.6 mmHg Lat Peak E' Rajeev: 8.9 cm/sec PA pr(Accel): 34.5 mmHg E/E' lat: 7.7 E/e' average: 9.3 MV dec time: 0.27 sec SV(LVOT): 58.2 ml Electronically signed by: Keila Zhang on Reading Physician:02/24/2023 02:17 PM
[2023-02-23] MEDS: carvediloL 3.125 MG TABLET PO (21:21)
[2023-02-23] MEDS: ATORVASTATIN 20 MG TABLET 80 MG PO (21:21)
[2023-02-23] MEDS: SODIUM CHLORIDE 0.9% FLUSH 10 ML IV (21:23)
[2023-02-24] VITALS: BP 119/60; PULSE 71; RESP 16; TEMP 36.4; O2SAT 95
[2023-02-24 04:00] VITALS: BP 125/71; PULSE 65; RESP 17; TEMP 36.1; O2SAT 97
[2023-02-24 05:50] LABS: Add Manual Diff / Slide Review NO; Basophils Absolute Auto 0 /uL (0-100); Basophils Percent Auto 0.4 % (0-2); Eosinophils Absolute Auto 200 /uL (0-450); Eosinophils Percent Auto 1.6 % (2-4); Hematocrit 40.7 % (41-53); Hemoglobin 13.8 g/dL (13.5-17.5); Lymphocytes Absolute Auto 3200 /uL (1100-4500); Lymphocytes Percent Auto 31.8 % (25-40); Mean Corpuscular HGB Conc 33.9 % (30-36); Mean Corpuscular Hemoglobin 30.4 PG (26-34); Mean Corpuscular Volume 89.8 fL (80-100); Monocytes Absolute Auto 900 /uL (0-900); Monocytes Percent Auto 8.6 % (3-14); Neutrophils Absolute Auto 5800 /uL (1500-7000); Neutrophils Percent Auto 57.6 % (50-75); Platelet Count 286 X10^3/uL (150-400); Red Blood Cell Count 4.53 X10^6/uL (4.5-5.9); White Blood Cell Count 10.1 X10^3/uL (4.5-11.0)
[2023-02-24 06:06] LABS: BUN Creatinine Ratio 23.8 (6-22); Blood Urea Nitrogen 19 mg/dL (9-20); Calcium 8.4 mg/dL (8.4-10.2); Carbon Dioxide 25 mmol/L (22-32); Chloride 105 mmol/L (98-107); Estimated Glomerular Filt Rate > 60 mL/min (>60); Glucose 84 mg/dL (80-110); HEMOLYSIS < 15 (0-50); Magnesium 1.9 mg/dL (1.6-2.3); Potassium 4.1 mmol/L (3.4-5.1); Sodium 136 mmol/L (137-145)
[2023-02-24 08:00] VITALS: BP 127/78; PULSE 68; RESP 18; TEMP 36.4; O2SAT 97
--- NOTE | 2023-02-24 08:48 | DI.MRI.S_ITS ---
PROCEDURE: MR HEAD/BRAIN WO CON INDICATIONS: TIA suspected TECHNIQUE: Non-contrast axial T1 spin echo, axial T2 fast spin echo, sagittal and axial FLAIR, coronal T2 fast spin echo, axial gradient echo, axial diffusion and ADC through the brain. COMPARISON: [facility], CT, CT HEAD/BRAIN WO CON, 02/23/2023, 15:23. [facility], CT, CT ANGIO HEAD AND NECK, 02/23/2023, 15:49. FINDINGS: Image quality: Excellent. CSF spaces: Ventricles appear symmetric in size and shape. Basal cisterns are patent. No extra-axial fluid collections. Brain: No intracranial bleeds or mass effects. There is cerebral volume loss for age. There are periventricular and deep white matter chronic small vessel ischemic changes. Brainstem appears normal. Diffusion-weighted images show no acute ischemic insults. No chronic ischemic insults. Normal intravascular flow voids are present. Skull and face: Calvarial bone marrow is normal in signal. Orbits are normal. Sinuses: Sinuses demonstrate scattered areas of mucosal thickening particularly within the maxillary sinuses. Minimal fluid is present within the right mastoid air cells. IMPRESSION: 1. No acute intracranial process. No acute ischemia. 2. Moderate atrophy and chronic microvascular ischemic changes. Dictated by: Tara Farris M.D. on 02/24/2023 at 10:31 Approved by: Tara Farris M.D. on 02/24/2023 at 10:32
--- NOTE | 2023-02-24 09:22 | PC.NURSE ---
Addendum entered by Cecilia Matson R.N. 02/24/23 11:10: Patient is going to discharge home today, his ride will be here at 1400. Original Note: Patient just down to MRI, will give him his morning medications when he gets back to his room.
[2023-02-24] MEDS: ASPIRIN EC 81 MG TABLET PO (09:53)
[2023-02-24] MEDS: lisinopriL 5 MG TABLET PO (09:53)
[2023-02-24] MEDS: carvediloL 3.125 MG TABLET PO (09:53)
[2023-02-24] MEDS: ENOXAPARIN 40 MG/0.4 ML SYRINGE SUBCUT (09:54)
[2023-02-24] MEDS: SODIUM CHLORIDE 0.9% FLUSH 10 ML IV (09:54)
--- NOTE | 2023-02-24 10:19 | CM.DPNOTE ---
Attempted to see patient at 0910 but preparing to depart for MRI. Patient alert, awake talking on cell phone to family in [place]. CM will return later this am for assessment.
--- NOTE | 2023-02-24 10:50 | PM.DS.1 ---
History of Present Illness History of Present Illness Date Patient Seen: 02/24/23 Time Patient Seen: 10:50 Chief complaint: Altered mental status Narrative: This is 77-year-old male who lives in [place] and has coronary disease, hypertension and hyperlipidemia. He is visiting his sister locally and today around noon, after coming out of the shower was confused, repetitive and seemed to have some double vision. He had been acting normal in the morning. He has no history of stroke but has had coronary artery stenting in the past. The symptoms lasted for about 2 hours but were completely cleared by the time he got to the ED from [facility]. His CT of the brain is normal. His CTA of the head and neck is normal. The chest x-ray is normal. His labs are unremarkable. He will be monitored on telemetry. He has no history of atrial fibrillation. He is a Georgian speaker. His adult daughter is with him and translates. That is his preference. He is flying back to [place] in 4 days. Discharge Providers Provider Date of admission: 02/23/23 18:11 Discharge Date: 02/24/23 Primary care physician: Doctor Valentina MD Discharge provider: Delmar Harris DO Summary Hospital Course Discharge Diagnosis: Acute toxic or metabolic encephalopathy or possible TIA Coronary artery disease Hypertension Hyperlipidemia Hospital Course: This is a 77-year-old male with coronary artery disease, hypertension, HLD who presented with an episode of confusion/altered mental state consistent with TIA. His symptoms resolved after two hours. Telemetry monitoring here was unremarkable, and MRI was negative for acute infarction. He had no recurrence of confusion or encephalopathy. His presentation is likely to have been a TIA, but cannot rule out a rapid toxic or metabolic encephalopathy based on presentation that also resolved. Echocardiogram was deferred at this time given negative MRI and presume he has had prior TTE given history of CAD, with little likelihood for change in management at this time. If no prior TTE has been done, recommend follow up with primary care for completion of workup. Time Spent with Patient Time spent: Greater than 30 minutes Exam Vital Signs (past 8 hours): - 02/24/23 04:00 02/24/23 08:00 Temperature 97.0 F L 97.6 F Pulse Rate 65 68 Respiratory Rate 17 18 Blood Pressure 125/71 127/78 Pulse Oximetry 97 97 Oxygen Flow Rate 0 Oxygen Delivery Method Room Air Oxygen Flow Rate 0 Narrative Exam Narrative: Gen: no acute distress CV: RRR no m/r/g Pulm: CTA b/l Abd S NT ND Ext: no edema Neuro: alert and oriented, no focal deficits. Objective Labs 02/24/23 04:55 02/24/23 04:55 Labs: Laboratory Results - last 24 hr 02/23/23 02/23/23 02/23/23 15:03 15:03 15:15 WBC 12.8 H RBC 4.80 Hgb 14.3 Hct 42.5 MCV 88.6 MCH 29.9 MCHC 33.7 RDW 12.6 Plt Count 298 Neut % (Auto) 79.3 H Lymph % (Auto) 13.9 L [place] % (Auto) 5.6 Eos % (Auto) 0.8 L Baso % (Auto) 0.4 Neut # (Auto) 61039 H Lymph # (Auto) 1800 [place] # (Auto) 700 Eos # (Auto) 100 Baso # (Auto) 0 PT INR APTT Sodium Potassium Chloride Carbon Dioxide BUN Creatinine Estimated GFR BUN/Creatinine Ratio Glucose Calcium Magnesium Total Bilirubin AST ALT Alkaline Phosphatase Total Creatine Kinase Troponin I Total Protein Albumin Globulin Albumin/Globulin Ratio Urine Color Yellow Urine Appearance Clear Urine pH 6.0 Ur Specific [place] 1.010 Urine Protein Negative Urine Glucose (UA) Negative Urine Ketones Negative Urine Occult Blood Trace-intact Urine Nitrate Negative Urine Bilirubin Negative Urine Urobilinogen 0.2 Ur Leukocyte Esterase Negative Urine RBC None seen Urine WBC None seen Ur Squamous Epith Cells None seen Amorphous Sediment 1+ Urine Bacteria None seen Ur Culture Indicated? Cult not indicated U Opiates 300ng/mL cut Negative Ur Oxycodone Screen Negative Urine Methadone Screen Negative Ur Barbiturates Screen Negative U Tricyclic Antidepress Negative Ur Phencyclidine Scrn Negative Ur Amphetamines Screen Negative U Methamphetamines Scrn Negative Ur MDMA Scrn (Ecstasy) Negative U Benzodiazepines Scrn Negative Urine Cocaine Screen Negative U Marijuana (THC) Screen Negative 02/23/23 02/23/23 02/24/23 15:15 15:15 04:55 WBC 10.1 RBC 4.53 Hgb 13.8 Hct 40.7 L MCV 89.8 MCH 30.4 MCHC 33.9 RDW 13.0 Plt Count 286 Neut % (Auto) 57.6 D Lymph % (Auto) 31.8 [place] % (Auto) 8.6 Eos % (Auto) 1.6 L Baso % (Auto) 0.4 Neut # (Auto) 5800 Lymph # (Auto) 3200 [place] # (Auto) 900 Eos # (Auto) 200 Baso # (Auto) 0 PT 12.5 INR 1.1 APTT 31 Sodium 136 L Potassium 4.2 Chloride 106 Carbon Dioxide 22 BUN 20 Creatinine 0.81 Estimated GFR > 60 BUN/Creatinine Ratio 24.7 H Glucose 100 Calcium 8.8 Magnesium 1.8 Total Bilirubin 1.0 AST 31 ALT 28 Alkaline Phosphatase 68 Total Creatine Kinase 103 Troponin I < 0.012 Total Protein 7.4 Albumin 4.0 Globulin 3.4 Albumin/Globulin Ratio 1.2 Urine Color Urine Appearance Urine pH Ur Specific [place] Urine Protein Urine Glucose (UA) Urine Ketones Urine Occult Blood Urine Nitrate Urine Bilirubin Urine Urobilinogen Ur Leukocyte Esterase Urine RBC Urine WBC Ur Squamous Epith Cells Amorphous Sediment Urine Bacteria Ur Culture Indicated? U Opiates 300ng/mL cut Ur Oxycodone Screen Urine Methadone Screen Ur Barbiturates Screen U Tricyclic Antidepress Ur Phencyclidine Scrn Ur Amphetamines Screen U Methamphetamines Scrn Ur MDMA Scrn (Ecstasy) U Benzodiazepines Scrn Urine Cocaine Screen U Marijuana (THC) Screen 02/24/23 04:55 WBC RBC Hgb Hct MCV MCH MCHC RDW Plt Count Neut % (Auto) Lymph % (Auto) [place] % (Auto) Eos % (Auto) Baso % (Auto) Neut # (Auto) Lymph # (Auto) [place] # (Auto) Eos # (Auto) Baso # (Auto) PT INR APTT Sodium 136 L Potassium 4.1 Chloride 105 Carbon Dioxide 25 BUN 19 Creatinine 0.80 Estimated GFR > 60 BUN/Creatinine Ratio 23.8 H Glucose 84 Calcium 8.4 Magnesium 1.9 Total Bilirubin AST ALT Alkaline Phosphatase Total Creatine Kinase Troponin I Total Protein Albumin Globulin Albumin/Globulin Ratio Urine Color Urine Appearance Urine pH Ur Specific [place] Urine Protein Urine Glucose (UA) Urine Ketones Urine Occult Blood Urine Nitrate Urine Bilirubin Urine Urobilinogen Ur Leukocyte Esterase Urine RBC Urine WBC Ur Squamous Epith Cells Amorphous Sediment Urine Bacteria Ur Culture Indicated? U Opiates 300ng/mL cut Ur Oxycodone Screen Urine Methadone Screen Ur Barbiturates Screen U Tricyclic Antidepress Ur Phencyclidine Scrn Ur Amphetamines Screen U Methamphetamines Scrn Ur MDMA Scrn (Ecstasy) U Benzodiazepines Scrn Urine Cocaine Screen U Marijuana (THC) Screen PFSH Medical History (Updated 02/23/23 @ 18:26 by Venkatesh Yoon MD) CAD (coronary artery disease) HLD (hyperlipidemia) HTN (hypertension) Surgical History (Updated 02/23/23 @ 18:35 by Venkatesh Yoon MD) H/O inguinal hernia repair History of coronary artery stent placement Family History (Updated 02/23/23 @ 18:27 by Venkatesh Yoon MD) Father COPD (chronic obstructive pulmonary disease) Social History household members: family Smoking Status: Never smoker alcohol intake: current Discharge Plan Discharge Plan Patient Disposition: Home Provider Discharge Comment: You were admitted to the hospital with a TIA. MRI negative for stroke. No changes to your home medications are recommended at discharge. Discharge orders & Medications Prescriptions: Continued simvastatin 40 mg tablet aspirin 81 mg Capsule 81 mg PO DAILY lisinopril 5 mg 1XD carvedilol 3.125 mg Tablet 3.125 mg PO BID Rx Instructions: must administer with a meal/food Follow up/Referrals: Doctor Montgomery MD [Primary Care Provider] - Diet/Activity/Treatments Diet: Diet as Tolerated and Regular Activity: As tolerated, no restrictions Visit Report/Discharge Packet Instructions: Transient Ischemic Attack, DI for Transient Ischemic Attack Stand Alone Forms: Patient Portal/API, Stroke Signs & Symptoms Discharge Data Primary Care Provider: Doctor Valentina Attending Provider: Venkatesh Yoon Admit Date/Time: 02/23/23 18:11 Quality VTE Deep Vein Thrombosis/Pulmonary Embolism Present on Admission: No
[2023-02-24 12:00] VITALS: BP 141/79; PULSE 67; RESP 20; TEMP 36.6; O2SAT 98
--- NOTE | 2023-02-24 12:21 | CM.DANOTE ---
DCP: Chart review for case, met with patient at bedside, they agree to case management assessment. Completed DCP assessment based on information available. Patient is 77 year old admitted for altered mental status. Luxembourgish speaking only. [email or web address] translate phone attempted by broken. Patient called harshad Hendrix who is travelling with patient. She relays that he lives in [facility] and [facility]. She translates with patient that he has a PCP Dr. Buck Martinez whom he has an apt with on March 06. Patient encouraged to request closer F/U. Genna mentions that the would like copies of the MRI, CT, and diagnostics for F/U. She will be here to garbage pick up man patient at 1430. Call to Medical Records with record release request in Luxembourgish. Awaiting return call. Plan: DC today with supportive family PCP: Dr. Buck Martinez in [facility] Payer: [facility] DME: None DCP: Home today with family. America Milan RN, CM Discharge Planning/Care Management CM Discharge Assessment Start: 02/24/23 12:20 Freq: Status: Active Protocol: Document 02/24/23 12:20 BQ (Rec: 02/24/23 12:21 BQ [id number]) Discharge Planning Assessment Assigned Job Setter [employer] CM DPOA/Assigned Designee Name Harshad Vail Advance Directives? No History Provided By Patient,Family Member Has Patient been admitted in last 30 No days? Prior Living Arrangements House Comment Pt is visiting from out of town Household Members family Type of transporation used prior to Relies on Others admit Willing to Return to Facility? No Independent with ADL's Yes Is patient alert and oriented? Yes Caregiver for Another No Barriers to Discharge No Referrals Initiated None needed Whiteboard Updated in Patient Room with Yes name and ext. # of Job Setter [employer]ing Review Status In Process Next Review Type Continued Stay Review
== END 2023-02-24 17:20 | disposition home or self-care (01) ==
LOC: ED 18:11 → AC 18:11
PROVIDERS: Admitting Provider Family Medicine; Emergency Provider Emergency Medicine; Referring Provider Emergency Medicine; Visit Provider Family Medicine
DX: G45.9 Transient cerebral ischemic attack, unspecified (principal); R41.82 Altered mental status, unspecified; I10 Essential (primary) hypertension; E78.5 Hyperlipidemia, unspecified; I25.10 Atherosclerotic heart disease of native coronary artery without angina pectoris
CPT/HCPCS: 36415; 70450; 70496; 70498; 70551; 71045; 80048; 80053; 80305; 81001; 81003; 82550; 82962; 83735; 84484; 85025; 85610; 85730; 93005; 93306; 99284; G0378; J1650; Q9967